=== PATIENT | male | born 1980 | race Caucasian/White ===

== ENCOUNTER 2019-07-02 10:07 | Day surgery (SDC) | payer OTHER ==
[2019-07-02] MEDS ORDERED: ZESTRIL10 M1 PO (11:31)
== END 2019-07-02 16:40 | disposition home or self-care (01) ==
LOC: CIR.AMB 10:07
DX: S56.128A Laceration of flexor muscle, fascia and tendon of left little finger at forearm level, initial encounter (principal)

== ENCOUNTER 2024-02-29 20:22 | Emergency (ER) | payer OTHER ==
[~2024-02-29] VITALS: Ht 172.7 cm; Wt 95.3 kg
[~2024-02-29 20:22] MED LIST: ZESTRIL10 M1 PO
== END 2024-02-29 21:33 | disposition home or self-care (01) ==
LOC: ER 20:23
DX: M19.079 Primary osteoarthritis, unspecified ankle and foot (principal); I10 Essential (primary) hypertension